=== PATIENT | male | born 1955 | race Two or more races ===

== ENCOUNTER 2022-02-18 07:34 | Outpatient (CLI) | payer OTHER | END 2022-02-18 07:36 | disposition home or self-care (01) | LOC: LAB 07:34 | PROVIDERS: ATTEND Urology | DX: R97.21 Rising PSA following treatment for malignant neoplasm of prostate (principal) ==

== ENCOUNTER 2022-04-03 15:40 | Outpatient (CLI) | payer OTHER | END 2022-04-03 15:50 | disposition home or self-care (01) | LOC: LAB 15:40 | PROVIDERS: ATTEND Urology | DX: R97.20 Elevated prostate specific antigen [PSA] (principal) ==

== ENCOUNTER → 2022-04-19 | Outpatient (CLI) | payer OTHER | END | disposition home or self-care (01) | LOC: SONOGRAMA 07:29 | PROVIDERS: ATTEND Urology | DX: C61 Malignant neoplasm of prostate (principal); N41.1 Chronic prostatitis; D29.1 Benign neoplasm of prostate; R97.20 Elevated prostate specific antigen [PSA] ==